=== PATIENT | male | born 1950 | race African-American/Black ===

== ENCOUNTER → 2017-04-17 | Outpatient (CLI) | payer MEDICARE ==
--- NOTE | 2017-04-17 14:53 | RADIOLOGY REPORT (SQ) ---
EXAM DESCRIPTION: SHOULDER LEFT 2 OR MORE VIEWS COMPLETED DATE/TIME: 04/17/2017 1:22 pm REASON FOR STUDY: PRIMARY OSTEOARTHRITIS, LEFT SHOULDER M19.012 PRIMARY OSTEOARTHRITIS, LEFT SHOULD ER M19.072 PRIMARY OSTEOARTHRITIS, LEFT ANKLE AND FOOT COMPARISON: None. NUMBER OF VIEWS: Three views. TECHNIQUE: Internal rotation, external rotation, and Y view images acquired of the left shoulder. LIMITATIONS: None. FINDINGS: MINERALIZATION: Normal. BONES: No acute fracture or dislocation. No worrisome bone lesions. JOINTS: No dislocation. VISUALIZED LUNGS AND RIBS: No pneumothorax. No rib fracture. SOFT TISSUES: No radiopaque foreign body. OTHER: No other significant finding. IMPRESSION: NEGATIVE STUDY OF THE LEFT SHOULDER. NO RADIOGRAPHIC EVIDENCE OF ACUTE INJURY. TECHNICAL DOCUMENTATION: JOB ID: [id number] [employer]- All Rights Reserved
--- NOTE | 2017-04-17 14:54 | RADIOLOGY REPORT (SQ) ---
EXAM DESCRIPTION: ANKLE LEFT COMPLETE COMPLETED DATE/TIME: 04/17/2017 1:22 pm REASON FOR STUDY: PRIMARY OSTEOARTHRITIS, LEFT ANKLE AND FOOT M19.012 PRIMARY OSTEOARTHRITIS, LEFT SHOULDER M19.072 PRIMARY OSTEOARTHRITIS, LEFT ANKLE AND FOOT COMPARISON: None. NUMBER OF VIEWS: Three views. TECHNIQUE: AP, lateral, and oblique radiographic images acquired of the left ankle. LIMITATIONS: None. FINDINGS: MINERALIZATION: Normal. BONES: No fracture or dislocation. Plantar calcaneal spur. JOINTS: No effusions. SOFT TISSUES: Soft tissue swelling more prominent medially. OTHER: No other significant finding. IMPRESSION: Soft tissue swelling with no fracture. Plantar calcaneal spur. TECHNICAL DOCUMENTATION: JOB ID: [id number] [employer]- All Rights Reserved
== END ==
LOC: OD 12:58
PROVIDERS: ATTEND Internal Medicine
DX: M19.012 Primary osteoarthritis, left shoulder (principal); M19.072 Primary osteoarthritis, left ankle and foot

== ENCOUNTER → 2017-06-18 | Outpatient (CLI) | payer MEDICARE, OTHER ==
--- NOTE | 2017-06-18 17:56 | RADIOLOGY REPORT (SQ) ---
EXAM DESCRIPTION: WRIST LEFT 3 VIEWS COMPLETED DATE/TIME: 06/18/2017 5:18 pm REASON FOR STUDY: ANKYLOSIS, LEFT WRIST M24.632 ANKYLOSIS, LEFT WRIST COMPARISON: None. NUMBER OF VIEWS: Three views. TECHNIQUE: AP, lateral, and oblique radiographic images acquired of the left wrist. LIMITATIONS: None. FINDINGS: MINERALIZATION: Normal. BONES: No fracture. There are cystic changes in the distal radius and there are erosive changes in t he lunate and scaphoid. SOFT TISSUES: No soft tissue swelling. No foreign body. OTHER: No other significant finding. IMPRESSION: There are not joint changes with subchondral cysts in the distal radius and with contigu ous erosions in the lunate and scaphoid. TECHNICAL DOCUMENTATION: JOB ID: [id number] [employer]- All Rights Reserved
== END ==
LOC: OD 17:00
PROVIDERS: ATTEND Internal Medicine
DX: M24.632 Ankylosis, left wrist (principal)

== ENCOUNTER 2017-09-15 08:18 | Emergency (ER) | payer MEDICARE, OTHER ==
[2017-09-15 08:24] VITALS: BP 152/86
[2017-09-15] MEDS ORDERED: KETOROLAC TROMETHAMINE INJ/PF 30 MG/1 ML SDV IM ONE (08:35)
[2017-09-15] MEDS ORDERED: LIDOCAINE 5% (700 MG) TRANSDERMAL ADH..PATCH TP ONE (08:36)
--- NOTE | 2017-09-15 08:42 | ER Document Report ---
HPI - HPI Pain Level: 4 Notes: Patient is a 67-year-old male with a history of diabetes, gout, and hypertension as well as osteoarthritis who presents to the ED complaining of left-sided neck/back pain, muscle soreness, left shoulder pain. Patient states that symptoms have been ongoing over the last month or 2. Patient states that he has been evaluated for his left shoulder by his PCM as well. Patient does take narcotics daily for chronic pain. Patient denies any recent injury. Patient has not been evaluated by orthopedics or physical therapy. The pains do not radiate otherwise. Denies any headache, fever, head injury, changes in vision/speech/mentation/hearing, URI, sore throat, chest pain, palpitations, syncope, cough, shortness of breath, wheeze, dyspnea, abdominal pain, nausea/ vomiting/diarrhea, urinary retention, dysuria, hematuria, loss of control of bowel or bladder, numbness/tingling, saddle anesthesia, muscle paralysis/ weakness, or rash. - ROS Notes: REVIEW OF SYSTEMS: CONSTITUTIONAL : Denies fever, chills, or sweats. Denies recent illness. EENT: Denies eye, ear, throat, or mouth pain or symptoms. Denies nasal or sinus congestion or discharge. Denies throat, tongue, or mouth swelling or difficulty swallowing. CARDIOVASCULAR: Denies chest pain. Denies palpitations or racing or irregular heart beat. Denies ankle edema. RESPIRATORY: Denies cough, cold, or chest congestion. Denies shortness of breath, difficulty breathing, or wheezing. GASTROINTESTINAL: Denies abdominal pain or distention. Denies nausea, vomiting , or diarrhea. Denies blood in vomitus, stools, or per rectum. Denies black, tarry stools. Denies constipation. GENITOURINARY: Denies difficulty urinating, painful urination, burning, frequency, blood in urine, or discharge. MUSCULOSKELETAL: see hpi SKIN: Denies rash, lesions or sores. NEUROLOGICAL: Denies confusion or altered mental status. Denies passing out or loss of consciousness. Denies dizziness or lightheadedness. Denies headache. Denies weakness or paralysis or loss of use of either side. Denies problems with gait or speech. Denies sensory loss, numbness, or tingling. Denies seizures. ALL OTHER SYSTEMS REVIEWED AND NEGATIVE. Dictation was performed using [employer] recognition software Past Medical History - Social History Smoking Status: Unknown if Ever Smoked Family History: Reviewed & Not Pertinent Vertical Provider Document - CONSTITUTIONAL Agree With Documented VS: Yes Notes: PHYSICAL EXAMINATION: GENERAL: Well-appearing, well-nourished and in no acute distress. Neck: FROM to passive/active. Strength 5+/5. No vertebral point tenderness. + tenderness to the left trapezius mm extending to its insertion points. + mild spasming. No step-offs, erythema, or ecchymosis. Spurling negative. No midline tenderness. LUNGS: Breath sounds clear to auscultation bilaterally and equal. No wheezes rales or rhonchi. HEART: Regular rate and rhythm without murmurs, rubs, gallops. Musculoskeletal: Left shoulder: LROM to passive/active. Strength 4+/5. Non- tender to palp. No erythema, warmth, or swelling noted. LE's b/l: FROM to passive/active. Strength 5+/5. No deficits noted. No bony tenderness of extremities. Back: FROM to passive/active. Strength 5+/5. No vertebral point tenderness, stepoffs, or deformities. No other bony tenderness, erythema, swelling, or ecchymosis. SLR negative b/l. + mild tenderness to the lt T-paraspinal mm in pattern of the left trap mm. Extremities: No cyanosis, clubbing, or edema b/l. Peripheral pulses 2+. Capillary refill less than 2 seconds. NEUROLOGICAL: Normal speech, normal gait. Normal sensory, motor exams. Reflexes 2+ b/l. PSYCH: Normal mood, normal affect. SKIN: Warm, Dry, normal turgor, no rashes or lesions noted. - INFECTION CONTROL TRAVEL OUTSIDE OF THE [place] IN LAST 30 DAYS: No - RESPIRATORY O2 Sat by Pulse Oximetry: 98 Course - Re-evaluation Re-evalutation: 09/15/17 08:40 Patient is an afebrile, well-hydrated, 67-year-old male who presents to the ED with a trapezius muscle strain as well as ongoing left shoulder pain, suspect osteoarthritis. Vitals are stable. PE is otherwise unremarkable for any focal neurological deficits. No labs or imaging warranted at this time based on H&P. Patient had a recent shoulder x-ray which was unremarkable for any acute pathology. Low suspicion for any meningitis, fracture, expanding/ruptured AAA, cauda equina syndrome, epidural mass lesion/abscess, herniated disc causing severe spinal stenosis, septic joint, or other systemic infection at this time. Patient is aware that his condition can change from initial presentation and that he needs monitor symptoms closely for any acute changes. Toradol and Lidoderm patch given today. I will send him home with a prescription for naproxen as well as baclofen. Strongly recommend consult with orthopedics/ physical therapy. Recheck with your PCM in 3-5 days. Return to the ED with any worsening/concerning symptoms otherwise as reviewed in discharge. Patient is in agreement. - Vital Signs Vital signs: Temp Pulse Resp BP Pulse Ox 97.5 F 59 L 18 152/86 H 98 09/15/17 08:23 09/15/17 08:23 09/15/17 08:23 09/15/17 08:23 09/15/17 08:23 Discharge - Discharge Clinical Impression: Trapezius muscle strain Qualifiers: Encounter type: initial encounter Laterality: left Qualified Code(s): S46.812A - Strain of other muscles, fascia and tendons at shoulder and upper arm level, left arm, initial encounter Left shoulder pain Qualifiers: Chronicity: acute Qualified Code(s): M25.512 - Pain in left shoulder Condition: Stable Disposition: HOME, SELF-CARE Instructions: Exercise Program for the Shoulder ([facility]), Muscle Strain ([facility]), Muscle Relaxers ([facility]) Additional Instructions: Rest, Ice Tylenol/ibuprofen as needed Light stretches daily Strength exercises as able Moist heat and massage may help F/u with your PCP in 3-5 days for a recheck Consider consult(s) with Orthopedics/physical therapy for ongoing/worsening symptoms Return to the ED with any worsening symptoms and/or development of fever, headache, chest pain, palpitations, syncope, shortness of breath, trouble breathing, abdominal pain, n/v/d, muscle weakness/paralysis, numbness/tingling, swelling, redness, or other worsening symptoms that are concerning to you. Prescriptions: Baclofen [Baclofen 10 mg Tablet] 5 - 10 mg PO BID PRN #10 tablet PRN Reason: Naproxen 500 mg PO BID PRN #30 tablet PRN Reason: Forms: Elevated Blood Pressure Referrals: [facility] ([facility]) [Provider Group] - Follow up in 1 week
== END 2017-09-15 09:00 | disposition home or self-care (01) ==
LOC: ER 08:18
DX: S29.012A Strain of muscle and tendon of back wall of thorax, initial encounter (principal); X58.XXXA Exposure to other specified factors, initial encounter; M54.2 Cervicalgia; M25.512 Pain in left shoulder; E11.9 Type 2 diabetes mellitus without complications; G89.29 Other chronic pain; Z79.891 Long term (current) use of opiate analgesic
CPT/HCPCS: 99283; J1885

== ENCOUNTER 2017-09-30 10:27 | Emergency (ER) | payer OTHER, MEDICARE ==
--- NOTE | 2017-09-30 11:19 | ER Document Report ---
ED General - General Chief Complaint: Back Pain Stated Complaint: BACK PAIN Time Seen by Provider: 09/30/17 11:15 Mode of Arrival: Ambulatory Information source: Patient Notes: Patient is a 67 year old male who presents with left side neck pain radiating to left shoulder and low back pain that has been present intermittently for the past month. He has been seen by his PMD and was seen here on09/15/17 for same. He had xrays previously for his shoulder which were negative. He denies any paresthesias, unilateral weakness, numbness, chest pain, SOB, or headache. He has tried the medications prescribed which are not helping. He states he does have appointment with orthopedics on Friday. TRAVEL OUTSIDE OF THE [place] IN LAST 30 DAYS: No - Related Data Allergies/Adverse Reactions: No Known Allergies Allergy (Unverified 09/15/17 08:20) Past Medical History - General Information source: Patient - Social History Smoking Status: Unknown if Ever Smoked Family History: Reviewed & Not Pertinent - Past Medical History Cardiac Medical History: Reports: Hx Hypertension Endocrine Medical History: Reports: Hx Diabetes Mellitus Type 1 Renal/ Medical History: Denies: Hx Peritoneal Dialysis Review of Systems - Review of Systems Constitutional: See HPI EENT: No symptoms reported Cardiovascular: No symptoms reported Respiratory: No symptoms reported Gastrointestinal: No symptoms reported Genitourinary: No symptoms reported Male Genitourinary: No symptoms reported Musculoskeletal: See HPI Skin: No symptoms reported Hematologic/Lymphatic: No symptoms reported Neurological/Psychological: See HPI Physical Exam - Vital signs Vitals: Temp Pulse Resp BP Pulse Ox 97.8 F 59 L 20 148/90 H 98 09/30/17 10:36 09/30/17 10:36 09/30/17 10:36 09/30/17 10:36 09/30/17 10:36 - Notes Notes: PHYSICAL EXAM: CONSTITUTIONAL: Alert and oriented, well-appearing and in no acute distress. HENT: Normocephalic, atraumatic. Ear canals without erythema or foreign body, TMs pearly schreiber with good bony landmarks. Nares clear without erythema, septal hematoma or deviation, airway patent. Oropharynx clear without erythema, tonsilar exudate or malocclusion. Trachea midline. Uvula midline. Moist mucous membranes. EYES: Pupils equal round and reactive to light, EOM intact. Sclera anicteric, conjunctiva are normal. No entrapment. NECK: supple without lymphadenopathy. No midline tenderness or paraspinous muscle spasms. No step-offs or deformities. ROM intact. Significant tenderness to the left trapezius muscle extending to insertion points with spasms. No erythema or ecchymosis. HEART: Regular rate and rhythm without murmurs. LUNGS: CTAB and equal. No wheezes, rales or rhonchi. MUSCULOSKELETAL: Left shoulder: ROM limited in abduction 2/2 pain, Strength 4+/ 5. No bony tenderness. No erythema, warmth, or swelling noted. BACK: FROM to passive/active, Strength 5+/5. No midline tenderness, step-offs or deformities. No erythema, swelling or ecchymosis. SLR negative b/l. NEURO: Cranial nerves grossly intact. Normal sensory/motor exams. PSYCH: Normal mood, normal affect. SKIN: Warm and dry. Normal turgor. No rashes or lesions noted. Course - Re-evaluation Re-evalutation: 09/30/17 11:19 Patient seen and examined. He is afebrile, well-hydrated, non-toxic in appearance. Exam consistent with chronic pain, trapezius muscle strain. VSS, speaking in full sentences without difficulty. No neuro deficits noted, distal pulses intact. Denies chest pain or SOB at this time. No labs or imaging warranted at this time. Previous notes and reports reviewed which show VS are baseline. Low suspicion for meningitis, fracture, expanding/ruptured AAA, cauda equina syndrome, epidural abscess, spinal stenosis, septic joint or other emergent condition at this time. Advised that he would need to continue to monitor his symptoms but ultimately needs to see orthopedics for referral to physical therapy. Will treat with anti-inflammatories and muscle relaxers. At this time, will discharge with return precautions and follow-up recommendations. Verbal discharge instructions given at the bedside and opportunity for questions given. Medication warnings reviewed. Patient is in agreement with this plan and has verbalized understanding of return precautions and the need for primary care follow-up in the next 24-72 hours. - Vital Signs Vital signs: Temp Pulse Resp BP Pulse Ox 97.8 F 59 L 20 148/90 H 98 09/30/17 10:36 09/30/17 10:36 09/30/17 10:36 09/30/17 10:36 09/30/17 10:36 Discharge - Discharge Clinical Impression: Trapezius muscle spasm Trapezius muscle strain Qualifiers: Encounter type: initial encounter Laterality: left Qualified Code(s): S46.812A - Strain of other muscles, fascia and tendons at shoulder and upper arm level, left arm, initial encounter Left shoulder pain Qualifiers: Chronicity: chronic Qualified Code(s): M25.512 - Pain in left shoulder; G89.29 - Other chronic pain; G89.29 - Other chronic pain Condition: Stable Disposition: HOME, SELF-CARE Additional Instructions: Muscle Strain You have strained a muscle -- torn the fibers within the muscle. This often occurs with strenuous exertion, or during an injury that suddenly stretches the muscle. The seriousness of a strain varies. Some strains heal within days, others cause problems for months. X-rays cannot show a muscle strain. X-rays are taken only if symptoms suggest that a fracture could be present. The usual treatment of a muscle strain is rest and ice packs. Sometimes, a sling, splint, or crutches may be necessary to rest the muscle. The muscle can be used again once pain subsides. Severe strains require a special exercise and stretching program to prevent permanent stiffness and disability. Your doctor will advise you if this will be necessary. Call the doctor immediately if pain or swelling becomes severe, or if numbness or discoloration develop. Myalagia (Muscle Pain) Myalgia is pain in the muscles. We use the word myalgia to describe muscle pain where there's no history of injury, no known muscle disease, and the muscles are normal to examination. Myalgias can be a symptom of an acute illness , such as influenza, hepatitis, or any viral illness, especially with fever. Sometimes the muscle pain comes before any other symptoms. Myalgia can also be an early symptom of inflammatory muscle disease, such as lupus. If myalgia is accompanied by an acute illness that explains the muscle pain , then no further testing needs to be done. When there's no clear reason for the pain, tests may be done to see if there's an inflammatory or other disease of the muscles. The usual treatment for myalgias is anti-inflammatory medication, such as ibuprofen. Muscle aches may be soothed with a heating pad or hot compress. If muscles remain painful for more than a few days, you'll need testing and followup. Return if a muscle becomes swollen, red, or severely painful. Anti-Inflammatory Medication You have received a prescription for an antiinflammatory agent. This is an excellent, safe drug for pain control. In addition, it has potent antiinflammatory effects which are beneficial, especially in the treatment of injuries, arthritis, or tendonitis. It's best to take this medicine with food. Persons with ulcer disease or allergy to aspirin should notify their physician of this before taking this drug. Take the medication exactly as prescribed. Don't take additional doses unless instructed to do so by your doctor. If you develop wheezing, shortness of breath, hives, faintness, stomach pain, vomiting, or dark black stools, return for re-evaluation at once. Follow up with the orthopedics as soon as possible. Prescriptions: Diclofenac Sodium [Voltaren] 100 gm TP BID #1 gel..gram. Methocarbamol [Robaxin 500 mg Tablet] 500 mg PO TID #20 tablet Forms: Elevated Blood Pressure
[2017-09-30 12:39] VITALS: BP 145/95
== END 2017-09-30 12:39 | disposition home or self-care (01) ==
LOC: ER 10:27
DX: S46.812A Strain of other muscles, fascia and tendons at shoulder and upper arm level, left arm, initial encounter (principal); M62.830 Muscle spasm of back; M25.512 Pain in left shoulder; G89.29 Other chronic pain; M54.9 Dorsalgia, unspecified; M54.2 Cervicalgia; M54.5 Low back pain; X58.XXXA Exposure to other specified factors, initial encounter
CPT/HCPCS: 99283

== ENCOUNTER → 2018-01-13 | Outpatient (CLI) | payer MEDICARE, OTHER ==
--- NOTE | 2018-01-13 13:45 | RADIOLOGY REPORT (SQ) ---
EXAM DESCRIPTION: CHEST 2 VIEWS COMPLETED DATE/TIME: 01/13/2018 1:15 pm REASON FOR STUDY: UNSPEC DIASTOLIC HEART FAILURE (I50.30) COMPARISON: None. EXAM PARAMETERS: NUMBER OF VIEWS: two views TECHNIQUE: Digital Frontal and Lateral radiographic views of the chest acquired. RADIATION DOSE: NA LIMITATIONS: Positioning. FINDINGS: LUNGS AND PLEURA: Subsegmental airspace disease in both lower lobes. No large effusions. MEDIASTINUM AND HILAR STRUCTURES: No masses or contour abnormalities. HEART AND VASCULAR STRUCTURES: Cardiomegaly. No evidence for failure. BONES: No acute findings. HARDWARE: None in the chest. OTHER: No other significant finding. IMPRESSION: Bilateral lower lobe airspace disease consistent atelectasis or developing pneumonia. TECHNICAL DOCUMENTATION: JOB ID: [id number] [employer]- All Rights Reserved Reading location - IP/workstation name: [email or web address]-[email or web address]
--- NOTE | 2018-01-13 15:28 | RADIOLOGY REPORT (SQ) ---
EXAM DESCRIPTION: NM LUNG VENT/PERF SCAN COMPLETED DATE/TIME: 01/13/2018 3:18 pm REASON FOR STUDY: SOB, CONGESTIVE HEART FAILURE, RECENT SURGERY I50.30 UNSPECIFIED DIASTOLIC (CONGE STIVE) HEART FAILURE R06.00 DYSPNEA, UNSPECIFIED COMPARISON: None. RADIONUCLIDE AND DOSE: 5.25 millicuries TC-99m MAA Intravenous 29.7 millicuries TC-99m DTPA Inhaled aerosol TECHNIQUE: Eight views of the lungs acquired post ventilation of DTPA aerosol. Eight matching views of the lungs acquired following injection of MAA. LIMITATIONS: None. FINDINGS: VENTILATION: Symmetric and homogeneous distribution of DTPA aerosol during ventilatory pha se. No significant areas of photopenia. PERFUSION: Perfusion images with normal homogenous activity and no wedge-shaped or segmental defects. No ventilation-perfusion mismatches. OTHER: No other significant finding. IMPRESSION: Low probability for pulmonary embolus. TECHNICAL DOCUMENTATION: JOB ID: [id number] [employer]- All Rights Reserved Reading location - IP/workstation name: [email or web address]
--- NOTE | 2018-01-13 20:37 | XCELERA REPORT ---
[address] [address] Transthoracic Echocardiogram Report Name: PENELOPE CONTRERAS Age: 67 yrs Gender: Male : 1950 Patient Status: Outpatient Patient Location: Study Date: 01/13/2018 11:45 AM Height: 65 in Weight: 187 lb BSA: 1.9 m2 Reason For Study: CHF Ordering Physician: ANATOLY HOLLEY Performed By: Mariela Mukherjee Interpretation Summary Right heart poorly visualised, suspect RA enlarged.Mild TR with mild elev. RVSP 35 mm Hg Mild AV sclerosis, no , min AR. No mitral annular calcification. No MS, no MVP, mild MR with no LA enlargement. Mild/mod cocentric LVH with LVEF 65%, and stage I LVDD, with no regional wall motion abnormality. MMode/2D Measurements & Calculations RVDd: 2.3 cm LVIDd: 4.2 cm FS: 34.7 % Ao root diam: 3.4 cm IVSd: 1.3 cm LVIDs: 2.7 cm EDV(Teich): 77.6 ml LVPWd: 1.4 cm ESV(Teich): 27.7 ml Ao root area: 9.3 cm2 EF(Teich): 64.3 % LVOT diam: 2.1 cm LVOT area: 3.6 cm2 Doppler Measurements & Calculations MV E max araceli: MV dec slope: Ao V2 max: LV V1 max P.0 cm/sec 223.9 cm/sec2 142.7 cm/sec 4.3 mmHg MV A max araceli: MV dec time: Ao max PG: LV V1 max: 76.6 cm/sec 0.29 sec 8.1 mmHg 103.3 cm/sec MV E/A: 0.84 MARKOS(V,D): 2.6 cm2 PA V2 max: TR max araceli: 64.2 cm/sec 272.8 cm/sec PA max PG: TR max P.8 mmHg 1.6 mmHg Left Ventricle The left ventricle is grossly normal size. There is mild to moderate concentric left ventricular hypertrophy. The left ventricular ejection fraction is normal. LV EF is 65%. Doppler measurements suggest impaired left ventricular relaxation, which is associated with grade I/IV or mild diastolic dysfunction. No regional wall motion abnormalities noted. There is no thrombus. Right Ventricle The right ventricle is not well visualized secondary to technical limitations. Atria The right atrium is mildly dilated. The left atrial size is normal. The interatrial septum is intact with no evidence for an atrial septal defect. Mitral Valve The mitral valve is normal in structure and function. There is no evidence of mitral valve prolapse. There is no mitral valve stenosis. There is a trace amount of mitral regurgitation. Aortic Valve The aortic valve is trileaflet. The aortic valve opens well. The aortic valve is mildly calcified. There is no aortic valvular vegetation. There is no aortic valve stenosis. No aortic regurgitation is present. Great Vessels The aortic root is normal size. Effusions Minimal pericardial effusion. I WMSI = 1.00 % Normal = 100 Segments Size X - Cannot 2 - 4 - 1-2 small Interpret 1 - Normal Hypokinetic 3 - AkineticDyskinetic 3-5 moderate 5 - 6-14 large Aneurysmal 15-16 diffuse : ANATOLY HOLLEY > Alessandro Banegas
== END ==
LOC: SP 11:39
PROVIDERS: ATTEND Internal Medicine
DX: I50.30 Unspecified diastolic (congestive) heart failure (principal); R06.00 Dyspnea, unspecified
CPT/HCPCS: 82565; 93306; 71046; 78582; A9540; A9567; Q9969

== ENCOUNTER 2018-01-25 04:17 | Emergency (ER) | payer OTHER, MEDICARE ==
[2018-01-25 06:14] LABS: ABSOLUTE BASOPHILS # (AUTO) 0.2 10^3/uL (0.0-0.2); ABSOLUTE EOSINOPHILS # (AUTO) 0.2 10^3/uL (0.0-0.6); ABSOLUTE LYMPHOCYTES (AUTO) 3.4 10^3/uL (0.5-4.7); ABSOLUTE NEUT (AUTO) 6.6 10^3/uL (1.7-8.2); BASOPHILS % (AUTO) 1.4 % (0-2); EOSINOPHILS % (AUTO) 1.9 % (0-6); HEMOGLOBIN 13.5 g/dL (13.5-17.0); LYMPHOCYTES % (AUTO) 29.5 % (13-45); MEAN CORPUSCULAR HEMOGLOBIN 24.6 pg (27.0-33.4); MEAN CORPUSCULAR HGB CONC 33.8 g/dL (32.0-36.0); MEAN CORPUSCULAR VOLUME 73 fl (80-97); MONOCYTES % (AUTO) 8.9 % (3-13); PLATELET COUNT 320 10^3/uL (150-450); RED BLOOD COUNT 5.51 10^6/uL (4.35-5.55); RED CELL DISTRIBUTION WIDTH 16.1 % (11.5-14.0); SEGMENTED NEUTROPHILS % (AUTO) 58.3 % (42-78); TOTAL CELLS COUNTED % (AUTO) 100 %; WHITE BLOOD COUNT 11.4 10^3/uL (4.0-10.5)
[2018-01-25 06:19] LABS: APPEARANCE,URINE CLEAR; BILIRUBIN,URINE NEGATIVE (NEGATIVE); COLOR,URINE YELLOW; GLUCOSE, URINE NEGATIVE (NEGATIVE); KETONES,URINE NEGATIVE (NEGATIVE); LEUKOCYTE ESTERASE,URINE NEGATIVE (NEGATIVE); NITRITE,URINE NEGATIVE (NEGATIVE); PROTEIN,URINE 30 mg/dL (NEGATIVE); URINE SPECIFIC GRAVITY 1.011
--- NOTE | 2018-01-25 06:32 | ER Document Report ---
ED General - General Mode of Arrival: Ambulatory Information source: Patient TRAVEL OUTSIDE OF THE [place] IN LAST 30 DAYS: No <MELO SHAH - Last Filed: 01/25/18 07:48> <BIANKA NOVAK - Last Filed: 01/25/18 08:00> - General Chief Complaint: Numbness of Arm Stated Complaint: NUMBNESS Time Seen by Provider: 01/25/18 06:15 Notes: Patient is a 67-year-old male that presents to the emergency department today with complaints of "being unable to sleep" because when lying down he becomes increasingly short of breath. Patient was started on 20 mg of Lasix once a day for possible CHF and he states that he feels like the "swelling comes and goes" . Patient complains of bilateral leg swelling currently. Patient was started on a 7 day course of Levaquin on 01/21 for possible pneumonia. On 01/13/2018 the patient had a chest xray which showed bibasilar atelectasis and an echocardiogram on the same day showed an ejection fraction of 65%. (MELO SHAH) - Related Data Allergies/Adverse Reactions: No Known Allergies Allergy (Unverified 09/15/17 08:20) Past Medical History - General Information source: Patient - Social History Smoking Status: Never Smoker Cigarette use (# per day): No Chew tobacco use (# tins/day): No Frequency of alcohol use: Rare Drug Abuse: None Lives with: Family Family History: Reviewed & Not Pertinent Patient has suicidal ideation: No Patient has homicidal ideation: No - Past Medical History Cardiac Medical History: Reports: Hx Hypertension Endocrine Medical History: Reports: Hx Diabetes Mellitus Type 1 Musculoskeltal Medical History: Reports Hx Arthritis Past Surgical History: Reports: Hx Orthopedic Surgery - l rotator cuff <MELO SHAH - Last Filed: 01/25/18 07:48> Review of Systems - Review of Systems Constitutional: No symptoms reported EENT: No symptoms reported Cardiovascular: No symptoms reported Respiratory: See HPI, Short of breath Gastrointestinal: No symptoms reported Genitourinary: No symptoms reported Male Genitourinary: No symptoms reported Musculoskeletal: See HPI, Joint pain - left shoulder pain -- chronic secondary to recent rotator cuff surgery, Other - foot swelling bilaterally Skin: No symptoms reported Hematologic/Lymphatic: No symptoms reported Neurological/Psychological: No symptoms reported -: Yes All other systems reviewed and negative <MELO SHAH - Last Filed: 01/25/18 07:48> Physical Exam <PABLOMELO - Last Filed: 01/25/18 07:48> <BIANKA NOVAK - Last Filed: 01/25/18 08:00> - Vital signs Vitals: Temp Pulse Resp BP Pulse Ox 97.8 F 66 18 123/74 95 01/25/18 04:28 01/25/18 04:28 01/25/18 04:28 01/25/18 04:28 01/25/18 04:28 - Notes Notes: Physical Exam: General: Alert, appears well. HEENT: Normocephalic. Atraumatic. PERRL. Extraocular movements intact. Oropharynx clear. Neck: Supple. Non-tender. Respiratory: No respiratory distress. Clear and equal breath sounds bilaterally. Cardiovascular: Regular rate and rhythm. Abdominal: Obese. Non-tender. No distension. Normal Bowel Sounds. Back: Non-tender. No deformity or step off. Extremities: Moves all four extremities. Upper extremities: Left shoulder tenderness without swelling consistent with recent shoulder surgery. Normal ROM. Lower extremities: 1+ pitting edema R>L. Normal ROM. Neurological: Normal cognition. AAOx4. Normal speech. Psychological: Normal affect. Normal Mood. Skin: Warm. Dry. Normal color. (MELO SHAH) Course - Laboratory Result Diagrams: 01/25/18 05:59 01/25/18 05:59 <PABLOMELO - Last Filed: 01/25/18 07:48> - Laboratory Result Diagrams: 01/25/18 05:59 01/25/18 05:59 <BIANKA NOVAK - Last Filed: 01/25/18 08:00> - Vital Signs Vital signs: Temp Pulse Resp BP Pulse Ox 97.8 F 66 26 H 118/97 H 95 01/25/18 04:28 01/25/18 04:28 01/25/18 07:01 01/25/18 07:00 01/25/18 07:01 - Laboratory Laboratory results interpreted by me: 01/25/18 01/25/18 01/25/18 05:59 05:59 05:59 WBC 11.4 H MCV 73 L MCH 24.6 L RDW 16.1 H Sodium 148.5 H BUN 31 H Creatinine 1.67 H Est GFR ( Amer) 50 L Est GFR (Non-Af Amer) 41 L Creatine Kinase Urine Protein 30 H Urine Urobilinogen 4.0 H 01/25/18 05:59 WBC MCV MCH RDW Sodium BUN Creatinine Est GFR ( Amer) Est GFR (Non-Af Amer) Creatine Kinase 265 H Urine Protein Urine Urobilinogen Discharge <MELO SHAH - Last Filed: 01/25/18 07:48> <BIANKA NOVAK - Last Filed: 01/25/18 08:00> - Discharge Clinical Impression: Mild bibasilar atelectasis, Peripheral edema Dyspnea Qualifiers: Dyspnea type: unspecified Qualified Code(s): R06.00 - Dyspnea, unspecified Condition: Stable Disposition: HOME, SELF-CARE Additional Instructions: Edema, Peripheral: You have swelling in your legs. This is called peripheral edema. It can be caused by "leaky capillaries," inflammation, disease of the leg veins, or excess salt and water in your body. Edema may be a sign of heart, kidney, or liver disease. A medical evaluation can determine if there is a serious underlying cause for your edema. Avoid prolonged standing. If you must sit for a long time, occasionally get up and walk around or elevate your legs. Support stockings can be helpful in limiting swelling. Often diuretic or water pills are used to remove excess salt and water from your body. Call the doctor or return if you develop increased swelling, pain, or redness, shortness of breath, chest pain, or any other significant change. Dyspnea, Nonspecific: You were evaluated for shortness of breath, or dyspnea. Dyspnea has many causes, and some are more serious than others. Sometimes it's impossible to diagnose the cause of dyspnea with the tests that are available on an emergency basis. Based on our evaluation today, you do not need hospitalization now. We found no evidence of pneumonia, collapsed lung, blood clots in the lung, tumors , or heart failure. Causes of non-specific dyspnea can include asthma or bronchospasm, hyperventilation, emotional distress, heart disease, emphysema, fibrosis of the lung, and stiffness of the chest wall. In healthy individuals with a single episode, it's sometimes reasonable to do nothing but wait to see if the problem occurs again. Additional tests used to evaluate dyspnea can include cardiac stress testing, echocardiography, pulmonary function testing, CAT scan of the chest, bronchoscopy or pulmonary biopsy. Return if shortness of breath persists or worsens, or if you develop chest pain, fever, cough, confusion, or fainting. Review of your previous chest x-ray and echocardiogram, compared to your chest x -ray today suggests that you do not have pneumonia and you do not have congestive heart failure. You do have peripheral edema and that can be treated with fluid pills such as the Lasix you take, and elevating your feet as much as possible. Wear compression hose on your legs to help reduce the swelling and prevent further swelling. Follow-up with Dr. Holley this week for recheck. RETURN TO THE EMERGENCY ROOM IF ANY NEW OR WORSENING SYMPTOMS. Referrals: ANATOLY HOLLEY MD [Primary Care Provider] - Follow up in 3-5 days Scribe Attestation: 01/25/18 07:44 I personally performed the services described in the documentation, reviewed and edited the documentation which was dictated to the scribe in my presence, and it accurately records my words and actions. (BIANKA NOVAK) Scribe Documentation - Scribe Written by Melissa:: Melissa Willard, 01/25/2018 0725 acting as scribe for :: Dawn <MELO SHAH - Last Filed: 01/25/18 07:48>
--- NOTE | 2018-01-25 06:33 | RADIOLOGY REPORT (SQ) ---
EXAM DESCRIPTION: Single view of the CLINICAL HISTORY: SOB COMPARISON: None. FINDINGS: Single frontal view of the chest. The cardiomediastinal silhouette has normal size and contour. Low lung volumes. Bibasilar airspace opacities. Leads overlie the chest. No acute osseous abnormalities. Upper abdominal soft tissues are unremarkable. IMPRESSION: 1. Bibasilar opacities and low lung volumes. This could be related to bibasilar atelectasis however developing pneumonic process particularly in the left lung base could produce a similar appearance. Continued follow-up recommended.
[2018-01-25 06:37] LABS: ALANINE AMINOTRANSFERASE 42 U/L (21-72); ALBUMIN 4.1 g/dL (3.5-5.0); ALKALINE PHOSPHATASE 81 U/L (38-126); ANION GAP 15 (5-19); ASPARTATE AMINO TRANSFERASE 58 U/L (17-59); BILIRUBIN,DIRECT 0.4 mg/dL (0.0-0.4); BILIRUBIN,TOTAL 0.4 mg/dL (0.2-1.3); BLOOD UREA NITROGEN 31 mg/dL (7-20); CALCIUM 9.7 mg/dL (8.4-10.2); CARBON DIOXIDE 29 mmol/L (22-30); CHLORIDE 105 mmol/L (98-107); GLUCOSE 90 mg/dL (75-110); POTASSIUM 3.9 mmol/L (3.6-5.0); SODIUM 148.5 mmol/L (137-145); TOTAL PROTEIN 8.1 g/dL (6.3-8.2)
[2018-01-25 06:51] LABS: CREATINE KINASE 265 U/L (55-170)
--- NOTE | 2018-01-25 06:57 | RADIOLOGY REPORT (SQ) ---
EXAM DESCRIPTION: Single view of the chest CLINICAL HISTORY: Dyspnea, peripheral edema COMPARISON: Same day FINDINGS: Single frontal view of the chest. The cardiomediastinal silhouette has normal size and contour. Low lung volumes. Bibasilar airspace opacities. Leads overlie the chest. No acute osseous abnormalities. Upper abdominal soft tissues are unremarkable. IMPRESSION: 1. Bibasilar opacities and low lung volumes. This could be related to bibasilar atelectasis however developing pneumonic process particularly in the left lung base could produce a similar appearance. Continued follow-up recommended. Electronically signed by: Mikie Claros 01/25/2018 5:56 AM
[2018-01-25 07:03] LABS: NT PRO BNP 148 pg/mL (5-900)
[2018-01-25 07:09] LABS: TROPONIN I < 0.012 ng/mL
[2018-01-25 07:34] VITALS: BP 118/97
--- NOTE | 2018-01-25 16:22 | EKG REPORT ---
SEVERITY:- ABNORMAL ECG - SINUS RHYTHM LEFT VENTRICULAR HYPERTROPHY ABNORMAL T, CONSIDER ISCHEMIA, INFERIOR LEADS : Confirmed by: Clemencia Monreal 25-Jan-2018 16:22:22
== END 2018-01-25 08:20 | disposition home or self-care (01) ==
LOC: ER 04:17
DX: J98.11 Atelectasis (principal); R60.0 Localized edema; R06.00 Dyspnea, unspecified; R20.0 Anesthesia of skin; Z79.899 Other long term (current) drug therapy; M79.89 Other specified soft tissue disorders; I10 Essential (primary) hypertension; E10.9 Type 1 diabetes mellitus without complications
CPT/HCPCS: 36415; 71045; 71046; 80053; 81001; 82550; 83735; 83880; 84484; 85025; 93005; 93010; 99284

== ENCOUNTER → 2018-05-08 | Outpatient (CLI) | payer MEDICARE, OTHER ==
--- NOTE | 2018-05-08 13:49 | RADIOLOGY REPORT (SQ) ---
EXAM DESCRIPTION: NOT FOR OR FLUORO TO 1 HR COMPLETED DATE/TIME: 05/08/2018 1:14 pm REASON FOR STUDY: SNIFF TEST SOB (R06.02) R07.9 CHEST PAIN, UNSPECIFIED R06.02 SHORTNESS OF BR EATH COMPARISON: Two-view chest 01/25/2018 FLUOROSCOPY TIME: 6 seconds 4 series of digital fluoro images saved to PACS. TECHNIQUE: Fluoroscopy of the chest and diaphragm was performed for evaluation of diaphragmatic move ment during respiration, including sniff. Fluoroscopic images were obtained and saved to PACS. LIMITATIONS: None. FINDINGS: RIGHT DIAPHRAGM : Normal movement. LEFT DIAPHRAGM: Normal movement. SNIFF: Normal movement. There is bibasilar bandlike atelectasis, and possible right lower lobe nodule at fluoroscopy. Chest CT is recommended. The patient was scheduled for chest CT to follow today's fluoroscopy. Patient stated he was claustro phobic and refused to go into the CT scanner. IMPRESSION: NORMAL DIAPHRAGM EXERTION ON INSPIRATION AND EXPIRATION. Right lower lobe nodule at fluoroscopy. CT chest recommended for followup. Patient was scheduled fo r a CT today, but refused to enter the CT scanner due to claustrophobia. Perhaps CT chest could be r escheduled with oral or IV sedation. COMMENT: Quality ID [id number]: Final reports for procedures using fluoroscopy that document radiation exp osure indices, or exposure time and number of fluorographic images (if radiation exposure indices are not available) TECHNICAL DOCUMENTATION: JOB ID: [id number] [employer]- All Rights Reserved Reading location - IP/workstation name: [facility]-[email or web address]
== END ==
LOC: RAD 12:37
PROVIDERS: ATTEND Physician Assistant Medical
DX: R07.9 Chest pain, unspecified (principal); R06.02 Shortness of breath
CPT/HCPCS: 76000

== ENCOUNTER 2018-08-06 15:57 | Emergency (ER) | payer OTHER, MEDICARE ==
--- NOTE | 2018-08-06 16:18 | ER Document Report ---
ED General - General Stated Complaint: RESPIRATORY DISTRESS Time Seen by Provider: 08/06/18 16:11 TRAVEL OUTSIDE OF THE [place] IN LAST 30 DAYS: No - HPI Notes: Patient is a 68-year-old male that presents to the emergency department for chief complaint of mental status change. Patient's family last saw him normal at 8 AM this morning. Family found him at about 330 unresponsive in his living room. Patient was reportedly sitting on a chair slumped forward with agonal respirations. His oxygen was 75% on room air. He did have home oxygen and CPAP per EMS but was not wearing oxygen when they found him. Patient was still on the chair and did not have appeared to have fallen, there is no report of head injury. EMS reports patient had a gag reflex but has not been fighting BVM. The did give him 1 mg IV Narcan with no improvement of mental status. Past Medical History: Anxiety, hypertension, history of spontaneous pneumothorax Past Surgical History: Unknown Social History: Unknown Family History: Reviewed and noncontributory for presenting illness Allergies: Reviewed, see documented allergy list. REVIEW OF SYSTEMS: Unable to obtain with patient current mental status PHYSICAL EXAMINATION: Vital signs reviewed, nursing noted reviewed. GENERAL: Unresponsive HEAD: Atraumatic, normocephalic. EYES: Pupils 2+ bilateral, reactive symmetrically ENT: nares patent, copious oropharyngeal secretions NECK: Trachea midline, supple without lymphadenopathy LUNGS: Very diminished lung sounds bilateral, symmetric, agonal breathing HEART: Regular rate and rhythm without murmurs ABDOMEN: Soft, nondistended EXTREMITIES: Trace pretibial edema bilaterally NEUROLOGICAL: GCS 8 SKIN: Warm, Dry, normal turgor, no rashes or lesions noted on exposed skin - Related Data Allergies/Adverse Reactions: No Known Allergies Allergy (Verified 08/06/18 19:26) Past Medical History - Social History Smoking Status: Never Smoker Family History: Reviewed & Not Pertinent - Past Medical History Cardiac Medical History: Reports: Hx Hypertension Endocrine Medical History: Reports: Hx Diabetes Mellitus Type 1 Renal/ Medical History: Denies: Hx Peritoneal Dialysis Musculoskeletal Medical History: Reports Hx Arthritis Past Surgical History: Reports: Hx Orthopedic Surgery - l rotator cuff Physical Exam - Vital signs Vitals: Pulse Ox 97 08/06/18 16:05 Course - Re-evaluation Re-evalutation: 08/06/18 16:18 Patient arrived by EMS under bag valve ventilation with a GCS of 8. He was intubated at presentation for airway protection and for his hypoventilation. EKG shows a normal sinus rhythm with no ST elevation. BGT 285 08/06/18 17:43 Lab called stating patient's potassium was greater than 9, they are re-running the lab test to confirm. Patient has borderline hyper acute T waves on EKG with no QRS widening, he was given an amp of calcium gluconate for the potential hyperkalemia. Patient's blood pressure has continued to decrease despite fluid resuscitation. He has now received 2 L IV normal saline. Patient's blood pressure currently 88/64. Levophed will be started for his persistent hypotension. Right femoral line was placed for pressors. Patient's chest x-ray shows pneumonia which she was given antibiotics for. He is meeting criteria for septic shock. Blood cultures have been obtained. Urine culture has been ordered. CT scan of his brain showed no acute intracranial pathology including hemorrhagic stroke. Patient hemoglobin is normal and he has no signs of active bleeding. His care was discussed with Dr. Rider at [facility] who has accepted the patient for transfer. He is requiring pulmonary critical care evaluation which is not available at this facility. Because of his hypotension patient's sedation was switched from propofol to Versed which he is tolerating with good sedation. Patient's family is now at bedside in agreement with transfer for further care. Laboratory 08/06/18 08/06/18 08/06/18 16:01 16:15 16:15 WBC 8.5 RBC 5.85 H Hgb 14.8 Hct 45.7 MCV 78 L MCH 25.3 L MCHC 32.4 RDW 17.5 H Plt Count 280 Seg Neutrophils % 78.5 H Lymphocytes % 15.2 Monocytes % 5.5 Eosinophils % 0.1 Basophils % 0.7 Absolute Neutrophils 6.6 Absolute Lymphocytes 1.3 Absolute Monocytes 0.5 Absolute Eosinophils 0.0 Absolute Basophils 0.1 PT 13.7 INR 1.00 APTT 31.2 Sodium Potassium Chloride Carbon Dioxide Anion Gap BUN Creatinine Est GFR ( Amer) Est GFR (Non-Af Amer) Glucose POC Glucose 285 H Lactic Acid Calcium Total Bilirubin Direct Bilirubin Neonat Total Bilirubin Neonat Direct Bilirubin Neonat Indirect Bili AST ALT Alkaline Phosphatase Troponin I Total Protein Albumin 08/06/18 08/06/18 08/06/18 16:15 16:15 16:15 WBC RBC Hgb Hct MCV MCH MCHC RDW Plt Count Seg Neutrophils % Lymphocytes % Monocytes % Eosinophils % Basophils % Absolute Neutrophils Absolute Lymphocytes Absolute Monocytes Absolute Eosinophils Absolute Basophils PT INR APTT Sodium Cancelled Potassium Cancelled Chloride Cancelled Carbon Dioxide Cancelled Anion Gap Cancelled BUN Cancelled Creatinine Cancelled Est GFR ( Amer) Cancelled Est GFR (Non-Af Amer) Cancelled Glucose Cancelled POC Glucose Lactic Acid 1.9 Calcium Cancelled Total Bilirubin Cancelled Direct Bilirubin Cancelled Neonat Total Bilirubin Cancelled Neonat Direct Bilirubin Cancelled Neonat Indirect Bili Cancelled AST Cancelled ALT Cancelled Alkaline Phosphatase Cancelled Troponin I < 0.012 Total Protein Cancelled Albumin Cancelled Chest X-Ray 08/06/18 16:12 IMPRESSION: 1. LIFE LINES APPEAR TO BE IN PROPER POSITION. 2. LOW LUNG VOLUMES WITH BASILAR ATELECTASIS. POSSIBLE PNEUMONIA IN THE LEFT LUNG BASE. SMALL PLEURAL EFFUSIONS. Head CT 08/06/18 16:12 IMPRESSION: NORMAL BRAIN CT WITHOUT CONTRAST. EVIDENCE OF ACUTE STROKE: NO. - Vital Signs Vital signs: Temp Pulse Resp BP Pulse Ox 123 H 24 H 118/83 95 08/06/18 16:15 08/06/18 19:46 08/06/18 19:46 08/06/18 19:46 - Laboratory Result Diagrams: 08/06/18 16:15 08/06/18 17:20 Laboratory results interpreted by me: 08/06/18 08/06/18 08/06/18 16:01 16:15 17:20 RBC 5.85 H MCV 78 L MCH 25.3 L RDW 17.5 H Seg Neutrophils % 78.5 H Carbonic Acid ABG pH ABG pCO2 ABG pO2 ABG HCO3 ABG Total CO2 ABG O2 Saturation BUN 23 H Glucose 287 H POC Glucose 285 H Calcium 8.1 L Total Protein 5.9 L Albumin 2.9 L Urine Protein Urine Glucose (UA) Salicylates Acetaminophen 08/06/18 08/06/18 08/06/18 17:20 17:49 18:15 RBC MCV MCH RDW Seg Neutrophils % Carbonic Acid 2.06 H ABG pH 7.26 L ABG pCO2 68.3 H ABG pO2 71.8 L ABG HCO3 29.8 H ABG Total CO2 31.9 H ABG O2 Saturation 91.5 L BUN Glucose POC Glucose Calcium Total Protein Albumin Urine Protein 100 H Urine Glucose (UA) >=500 H Salicylates < 1.0 L Acetaminophen < 10 L - EKG Interpretation by Me Additional EKG results interpreted by me: 08/06/18 16:19 Interpreted by myself Normal sinus rhythm, rate 69, left axis, no ST elevation Procedures - Central Line Right Femoral Time completed: 17:07 Consent obtained: No - emergent Central line pre-insertion: Sterile PPE donned, Chloraprep applied Central line lumen type: Triple Anesthetic type: Other - patient sedated on propofol Ultrasound guided: No Line secured with sutures: Yes Central line post-insertion: Blood return from lumens, Biopatch applied, Sutured , Sterile dressing applied, Position confirmed w/ CXR Number of attempts: 1 Complications: No - Intubation Orotracheal Time of Intubation: 16:13 Airway evaluation: Normal anatomy Medications: Etomidate, Succinylcholine Intubation method: Orotracheal Equipment used: Glidescope ETT size: 7.5 ETT secured at: Lips ETT secured at (cm): 23 Breath Sounds after Intubation: Equal End tidal CO2 confirmed: Yes Post Intubation Xray: Yes Intubation Complications: No complications Notes: 08/06/18 16:14 1 attempt Critical Care Note - Critical Care Note Total time excluding time spent on procedures (mins): 110 Comments: septic shock. Respiratory and cardiovascular collapse. Management of respirations and hemodynamics. Discharge - Discharge Clinical Impression: Septic shock Respiratory failure Qualifiers: Chronicity: acute Respiratory failure complication: hypercapnia Qualified Code( s): J96.02 - Acute respiratory failure with hypercapnia Left lower lobe pneumonia Qualifiers: Pneumonia type: due to unspecified organism Qualified Code(s): J18.1 - Lobar pneumonia, unspecified organism Change in mental status Qualifiers: Altered mental status type: coma Coma depth: Aundrea coma 3-8 Coma timing: in the field (EMT or ambulance) Qualified Code(s): R40.2431 - Aundrea coma scale score 3-8, in the field [EMT or ambulance] Condition: Stable Disposition: [facility] Referrals: SCOTT CRUZ PA-C [NO LOCAL MD] - Follow up as needed
[2018-08-06] MEDS: NORMAL SALINE 1000 ML 1,000 ML IV PRN ×2 (16:20→17:00)
[2018-08-06] MEDS ORDERED: PROPOFOL 1,000 MG/100 ML INFUS..BTL IV ONE (16:21)
[2018-08-06 16:33] LABS: ABSOLUTE BASOPHILS # (AUTO) 0.1 10^3/uL (0.0-0.2); ABSOLUTE LYMPHOCYTES (AUTO) 1.3 10^3/uL (0.5-4.7); ABSOLUTE MONOCYTES (AUTO) 0.5 10^3/uL (0.1-1.4); ABSOLUTE NEUT (AUTO) 6.6 10^3/uL (1.7-8.2); BASOPHILS % (AUTO) 0.7 % (0-2); EOSINOPHILS % (AUTO) 0.1 % (0-6); HEMATOCRIT 45.7 % (37.9-51.0); HEMOGLOBIN 14.8 g/dL (13.5-17.0); LYMPHOCYTES % (AUTO) 15.2 % (13-45); MEAN CORPUSCULAR HEMOGLOBIN 25.3 pg (27.0-33.4); MEAN CORPUSCULAR HGB CONC 32.4 g/dL (32.0-36.0); MEAN CORPUSCULAR VOLUME 78 fl (80-97); MONOCYTES % (AUTO) 5.5 % (3-13); PLATELET COUNT 280 10^3/uL (150-450); RED BLOOD COUNT 5.85 10^6/uL (4.35-5.55); RED CELL DISTRIBUTION WIDTH 17.5 % (11.5-14.0); SEGMENTED NEUTROPHILS % (AUTO) 78.5 % (42-78); TOTAL CELLS COUNTED % (AUTO) 100 %; WHITE BLOOD COUNT 8.5 10^3/uL (4.0-10.5)
--- NOTE | 2018-08-06 16:37 | RADIOLOGY REPORT (SQ) ---
EXAM DESCRIPTION: CHEST SINGLE VIEW COMPLETED DATE/TIME: 08/06/2018 4:26 pm REASON FOR STUDY: unresponsive COMPARISON: 01/25/2018. EXAM PARAMETERS: NUMBER OF VIEWS: One view. TECHNIQUE: Single frontal radiographic view of the chest acquired. RADIATION DOSE: NA LIMITATIONS: None. FINDINGS: LUNGS AND PLEURA: Low lung volumes. Scattered basilar densities with possible infiltrate in the retrocardiac left lung base. Possible small pleural effusions. MEDIASTINUM AND HILAR STRUCTURES: No masses. Contour normal. HEART AND VASCULAR STRUCTURES: Mild cardiomegaly. Normal vasculature. BONES: No acute findings. HARDWARE: Endotracheal tube with the tip located 3 cm proximal to the radha. Nasogastric tube with the tip in the stomach. OTHER: No other significant finding. IMPRESSION: 1. LIFE LINES APPEAR TO BE IN PROPER POSITION. 2. LOW LUNG VOLUMES WITH BASILAR ATELECTASIS. POSSIBLE PNEUMONIA IN THE LEFT LUNG BASE. SMALL PLEUR AL EFFUSIONS. TECHNICAL DOCUMENTATION: JOB ID: [id number] [employer]- All Rights Reserved Reading location - IP/workstation name: [email or web address]
[2018-08-06 16:40] LABS: PARTIAL THROMBOPLASTIN TIME 31.2 SEC (23.5-35.8)
[2018-08-06 16:44] LABS: PROTHROMBIN TIME 13.7 SEC (11.4-15.4)
[2018-08-06] MEDS ORDERED: MIDAZOLAM HCL 50 MG/100 ML RTUINJ ONE (16:47)
--- NOTE | 2018-08-06 16:48 | RADIOLOGY REPORT (SQ) ---
EXAM DESCRIPTION: CT HEAD WITHOUT COMPLETED DATE/TIME: 08/06/2018 4:40 pm REASON FOR STUDY: unresponsive COMPARISON: None. TECHNIQUE: Axial images acquired through the brain without intravenous contrast. Images reviewed wi th bone, brain and subdural windows. Additional sagittal and coronal reconstructions were generated. Images stored on PACS. All CT scanners at this facility use dose modulation, iterative reconstruction, and/or weight based d osing when appropriate to reduce radiation dose to as low as reasonably achievable (ALARA). [facility]: Dose Right [facility]: CareDose [facility]: Dose Right [facility]: Teradose 4D [facility]: [employer] RADIATION DOSE: CT Rad equipment meets quality standard of care and radiation dose reduction techniq ues were employed. CTDIvol: 53.2 mGy. DLP: 1097 mGy-cm. mGy. LIMITATIONS: None. FINDINGS: VENTRICLES: Normal size and contour. CEREBRUM: No masses. No hemorrhage. No midline shift. No evidence for acute infarction. Normal gra y/white matter differentiation. No areas of low density in the white matter. CEREBELLUM: No masses. No hemorrhage. No alteration of density. No evidence for acute infarction. EXTRAAXIAL SPACES: No fluid collections. No masses. ORBITS AND GLOBE: No intra- or extraconal masses. Normal contour of globe without masses. CALVARIUM: No fracture. PARANASAL SINUSES: No fluid or mucosal thickening. SOFT TISSUES: No mass or hematoma. OTHER: No other significant finding. IMPRESSION: NORMAL BRAIN CT WITHOUT CONTRAST. EVIDENCE OF ACUTE STROKE: NO. COMMENT: Quality ID # [id number]: Final reports with documentation of one or more dose reduction techniques (e.g., Automated exposure control, adjustment of the mA and/or kV according to patient size, use of iterative reconstruction technique) TECHNICAL DOCUMENTATION: JOB ID: [id number] [employer] All Rights Reserved Reading location - IP/workstation name: [email or web address]
[2018-08-06] MEDS ORDERED: VANCOMYCIN HCL INJ 1000 MG VIAL IV ONE (17:05)
[2018-08-06] MEDS ORDERED: PIPERACILLIN/TAZOBACTAM 3.375 GM VIAL IV ONE (17:05)
[2018-08-06] MEDS ORDERED: CALCIUM GLUCONATE 1000 MG/10 ML INJ IV ONE ×2 (17:05)
[2018-08-06] MEDS ORDERED: FENTANYL CITRATE INJ/PF 100 MCG/2 ML AMPUL IV ONE (17:37)
[2018-08-06] MEDS ORDERED: DEXTROSE 5%-WATER 250 ML with NOREPINEPHRINE BITARTRATE 4 MG IV PRN ×2 (17:42)
--- NOTE | 2018-08-06 17:54 | RADIOLOGY REPORT (SQ) ---
EXAM DESCRIPTION: KUB/ABDOMEN (SINGLE VIEW) COMPLETED DATE/TIME: 08/06/2018 5:41 pm REASON FOR STUDY: femoral line placement COMPARISON: None. NUMBER OF VIEWS: One view. TECHNIQUE: Supine radiographic image of the abdomen acquired. LIMITATIONS: None. FINDINGS: BOWEL GAS PATTERN: Normal bowel gas pattern. No dilated loops. CALCIFICATIONS: No suspicious calcifications. SOFT TISSUES: No gross mass or suggestion of organomegaly. HARDWARE: Catheter via right femoral approach. Tip of the level L4-5 disc space. BONES: No acute fracture. No worrisome bone lesions. OTHER: No other significant finding. IMPRESSION: Left femoral catheter tip level of the L4-5 disc space on the right. TECHNICAL DOCUMENTATION: JOB ID: [id number] [employer]- All Rights Reserved Reading location - IP/workstation name: [email or web address]
[2018-08-06] MEDS ORDERED: NOREPINEPHRINE BITARTRATE INJ/PF 4 MG/4 ML SDV IV ONE (17:56)
[2018-08-06 17:57] LABS: ALANINE AMINOTRANSFERASE 33 U/L (21-72); ALBUMIN 2.9 g/dL (3.5-5.0); ALKALINE PHOSPHATASE 61 U/L (38-126); ANION GAP 8 (5-19); ASPARTATE AMINO TRANSFERASE 26 U/L (17-59); BILIRUBIN,DIRECT 0.2 mg/dL (0.0-0.4); BILIRUBIN,TOTAL 0.3 mg/dL (0.2-1.3); BLOOD UREA NITROGEN 23 mg/dL (7-20); CALCIUM 8.1 mg/dL (8.4-10.2); CARBON DIOXIDE 29 mmol/L (22-30); CHLORIDE 107 mmol/L (98-107); GLUCOSE 287 mg/dL (75-110); POTASSIUM 4.6 mmol/L (3.6-5.0); SODIUM 144.2 mmol/L (137-145); TOTAL PROTEIN 5.9 g/dL (6.3-8.2)
[2018-08-06 18:04] LABS: APPEARANCE,URINE CLEAR; BILIRUBIN,URINE NEGATIVE (NEGATIVE); COLOR,URINE YELLOW; GLUCOSE, URINE >=500 mg/dL (NEGATIVE); KETONES,URINE NEGATIVE (NEGATIVE); LEUKOCYTE ESTERASE,URINE NEGATIVE (NEGATIVE); NITRITE,URINE NEGATIVE (NEGATIVE); PROTEIN,URINE 100 mg/dL (NEGATIVE); URINE SPECIFIC GRAVITY 1.009; UROBILINOGEN,URINE NEGATIVE mg/dL (<2.0)
[2018-08-06 18:13] LABS: URINE AMPHETAMINES SCREEN NEGATIVE; URINE BARBITURATES SCREEN NEGATIVE; URINE BENZODIAZEPINES SCREEN NEGATIVE; URINE COCAINE SCREEN NEGATIVE; URINE MARIJUANA (THC) SCREEN NEGATIVE; URINE METHADONE SCREEN NEGATIVE; URINE PHENCYCLIDINE SCREEN NEGATIVE
[2018-08-06 18:28] LABS: ACETAMINOPHEN < 10 ug/mL (10-30); SALICYLATE < 1.0 mg/dL (2.0-20.0)
--- NOTE | 2018-08-06 19:08 | EKG REPORT ---
SEVERITY:- OTHERWISE NORMAL ECG - SINUS RHYTHM BORDERLINE LEFT AXIS DEVIATION : Confirmed by: Alessandro Banegas MD 06-Aug-2018 19:08:34
[2018-08-06 19:32] LABS: ARTERIAL BLOOD BASE EXCESS 1.1 mmol/L; ARTERIAL BLOOD FIO2 80%; ARTERIAL BLOOD H2CO3 2.06 mmol/L (1.05-1.35); ARTERIAL BLOOD HCO3 29.8 mmol/L (20-24); ARTERIAL BLOOD O2 SATURATION 91.5 % (94-98); ARTERIAL BLOOD PCO2 68.3 mmHg (35-45); ARTERIAL BLOOD PH 7.26 (7.35-7.45); ARTERIAL BLOOD PO2 71.8 mmHg (80-100); ARTERIAL BLOOD TOTAL CO2 31.9 mmol/L (23-27)
[2018-08-06 19:47] VITALS: BP 118/83
[2018-08-06] MEDS ORDERED: ETOMIDATE INJ/PF 20 MG/10 ML SDV IV ONE (19:55)
[2018-08-06] MEDS ORDERED: SUCCINYLCHOLINE CHLORIDE INJ 200 MG/10 ML VIAL ONE (20:51)
== END 2018-08-06 20:17 | disposition short-term general hospital (02) ==
LOC: ER 15:57
PROC: 0BH17EZ Insertion of Endotracheal Airway into Trachea, Via Natural or Artificial Opening (ICD-10-PCS; principal; 2018-08-06)
PROC: 06HM33Z Insertion of Infusion Device into Right Femoral Vein, Percutaneous Approach (ICD-10-PCS; 2018-08-06)
DX: R65.21 Severe sepsis with septic shock (principal); J18.1 Lobar pneumonia, unspecified organism; J96.02 Acute respiratory failure with hypercapnia; I10 Essential (primary) hypertension; E10.9 Type 1 diabetes mellitus without complications
CPT/HCPCS: 31500; 36556; 93005; 99291; 99292; 96361; 96375; 96365; 96366; 96368; 36415; 87040; 87086; 82962; 80307 ×4; 82803; 85025; 85610; 85730; 80053; 81001; 84484; 83605; 71045; 74018; 70450; 94660; 93010; C1751; J0610; J3010; J2704; J3490; J0330; J2250; J7060; J7030; J3370; J2543